=== PATIENT | female | born 1955 | race African-American/Black ===

== ENCOUNTER 2023-10-16 01:07 | Inpatient (IN) | payer MEDICARE, MEDICAID ==
[2023-10-16] VITALS (11 sets, daily range): BP systolic 129; BP diastolic 63; PULSE 79–91; RESP 14–22; TEMP 98.3; O2SAT 91–99
[~2023-10-16] VITALS: Ht 165.1 cm; Wt 77.3 kg
[~2023-10-16 01:07] MED LIST: ALBU18; IPRAAER5; LISI20TA56 PO; PRO125RS PO; VERA240T67 PO
[2023-10-16] MEDS: cefTRIAXone 1GM/50ML D5W 50 ML IV ONE (01:45)
[2023-10-16] MEDS: AZITHROMYCIN 250 MG TAB PO ONE (02:02)
[2023-10-16] MEDS: IPRATROPIUM BROM 0.5 MG/2.5ML INH SOL NEB ONE ×2 (02:14→06:31)
[2023-10-16] MEDS: ALBUTEROL SULF 2.5 MG/0.5ML(0.5%) NEB SOLN NEB ONE ×2 (02:14→06:31)
[2023-10-16] MEDS: methylPREDNISolone SOD SUCC 125 MG/2 ML VL IV ONE (02:45)
[2023-10-16 03:14] LABS: Basophils # (auto) 0 10 ^3/uL (0-0.2); Basophils % (auto) 0.4 % (0.0-2.0); Eosinophils # (auto) 0.5 10 ^3/uL (0-0.8); Eosinophils % (auto) 4.7 % (0.0-7.0); Hematocrit 39.9 % (36.0-46.0); Hemoglobin 12.5 g/dL (12.2-16.2); Lymphocytes # (auto) 0.7 10 ^3/uL (0.4-5.4); Lymphocytes % (auto) 7.1 % (10.0-50.0); Mean Corpuscular Hemoglobin 25.3 pg (28.0-32.0); Mean Corpuscular Hgb Conc. 31.4 g/dL (32.0-36.0); Mean Corpuscular Volume 80.5 fL (80.0-100.0); Monocytes # (auto) 0.2 10 ^3/uL (0-1.3); Neutrophils # (auto) 8.9 10 ^3/uL (1.6-8.6); Neutrophils % (auto) 85.8 % (37.0-80.0); Red Blood Cells 4.96 10^6/uL (4.0-5.20); Red Cell Distribution Width 21.1 % (11.8-14.3); White Blood Cell 10.3 10^3/uL (4.4-10.8)
[2023-10-16 03:43] LABS: Chloride 106 mmol/L (98-107); Sodium 139 mmol/L (136-145)
[2023-10-16 03:46] LABS: Anion Gap 8 (5-15); Carbon Dioxide 25 mmol/L (20-30)
[2023-10-16 03:47] LABS: Calcium 9.6 mg/dL (8.7-10.4)
[2023-10-16 03:51] LABS: Glucose 170 mg/dL (74-106)
[2023-10-16 04:02] LABS: Potassium 3.3 mmol/L (3.5-5.1)
[2023-10-16 04:03] LABS: BUN/Creatinine Ratio 6.8 (10.0-20.0); Blood Urea Nitrogen < 5 mg/dL (9-23)
[2023-10-16] MEDS ORDERED: DOCUSATE SOD 100 MG CAP PO PRN (06:45)
[2023-10-16] MEDS ORDERED: hydrALAZINE HCL 20 MG/ML VL IV PRN (06:45)
[2023-10-16] MEDS ORDERED: MORPHINE SULFATE INJ 2 MG/ml SYRG IV PRN (06:45)
[2023-10-16] MEDS ORDERED: ONDANSETRON HCL 4 MG/2 ML VIAL IV PRN (06:45)
[2023-10-16] MEDS ORDERED: ACETAMINOPHEN 325 MG TAB PO PRN (06:45)
[2023-10-16] MEDS ORDERED: NITROGLYCERIN 0.4 MG SL TAB SL PRN (06:45)
[2023-10-16] MEDS: SODIUM CHLORIDE 0.9% 1,000 ML IV SCH (07:09)
[2023-10-16] MEDS: POTASSIUM CHL 20 Meq TABLET PO ONE (07:10)
[2023-10-16 08:11] LABS: Alanine Aminotransferase 10 U/L (7-40); Albumin 4.4 g/dL (3.2-4.8); Alkaline Phosphatase 99 U/L (46-116); Aspartate Aminotransferase < 8 U/L (13-40); Bilirubin, Direct 0.1 mg/dL (<0.3); Bilirubin, Total 0.5 mg/dL (0.2-1.0); Total Protein 6.9 g/dL (5.7-8.2)
[2023-10-16] MEDS: ALBUTEROL SULF 2.5 MG/0.5ML(0.5%) NEB SOLN NEB PRN (10:47)
[2023-10-16] MEDS: HYDROcodone-ACET 10/325MG TAB PO PRN (13:54)
[2023-10-16] MEDS ORDERED: METO25TA93 PO (15:20)
[2023-10-16] MEDS ORDERED: ATOR-507 PO (15:20)
[2023-10-16] MEDS ORDERED: AMLO1TAB23 PO (15:20)
[2023-10-16] MEDS ORDERED: ASPI-378 OR (15:22)
[2023-10-16] MEDS ORDERED: PANT40TA2 PO (15:22)
[2023-10-16] MEDS: methylPREDNISolone SOD SUCC 40 MG/ML VL IV SCH (15:36)
[2023-10-16] MEDS: IPRATROPIUM BROM 0.5 MG/2.5ML INH SOL NEB PRN (18:22)
[2023-10-16] MEDS: ATORVASTATIN 20 MG TAB PO SCH (22:50)
[2023-10-17] VITALS (16 sets, daily range): BP systolic 123–142; BP diastolic 64–82; PULSE 71–89; RESP 16–24; TEMP 98–98.8; O2SAT 91–100
[2023-10-17] MEDS: IPRATROPIUM BROM 0.5 MG/2.5ML INH SOL NEB SCH (02:06)
[2023-10-17] MEDS: ALBUTEROL SULF 2.5 MG/0.5ML(0.5%) NEB SOLN NEB SCH (02:06)
[2023-10-17] MEDS: TEMAZEPAM 15 MG CAP PO ONE (03:13)
[2023-10-17 06:19] LABS: Basophils # (auto) 0.1 10 ^3/uL (0-0.2); Basophils % (auto) 0.4 % (0.0-2.0); Eosinophils # (auto) 0 10 ^3/uL (0-0.8); Hematocrit 38.9 % (36.0-46.0); Hemoglobin 12.3 g/dL (12.2-16.2); Lymphocytes # (auto) 0.7 10 ^3/uL (0.4-5.4); Lymphocytes % (auto) 4.8 % (10.0-50.0); Mean Corpuscular Hemoglobin 25.4 pg (28.0-32.0); Mean Corpuscular Hgb Conc. 31.7 g/dL (32.0-36.0); Mean Corpuscular Volume 80.3 fL (80.0-100.0); Monocytes # (auto) 0.3 10 ^3/uL (0-1.3); Monocytes % (auto) 2.4 % (0.0-12.0); Neutrophils # (auto) 12.8 10 ^3/uL (1.6-8.6); Neutrophils % (auto) 92.4 % (37.0-80.0); Red Blood Cells 4.85 10^6/uL (4.0-5.20); White Blood Cell 13.8 10^3/uL (4.4-10.8)
[2023-10-17 06:20] LABS: Red Cell Distribution Width 21.5 % (11.8-14.3)
[2023-10-17 06:29] LABS: Alanine Aminotransferase 10 U/L (7-40); Alkaline Phosphatase 95 U/L (46-116); Calcium 10.9 mg/dL (8.5-10.1); Carbon Dioxide 24 mmol/L (20-30); Chloride 104 mmol/L (98-107)
[2023-10-17 06:30] LABS: Albumin 4.5 g/dL (3.2-4.8); Anion Gap 10 (5-15); Aspartate Aminotransferase 11 U/L (13-40); BUN/Creatinine Ratio 13.9 (10.0-20.0); Bilirubin, Total 0.4 mg/dL (0.2-1.0); Blood Urea Nitrogen 16 mg/dL (9-23); Glucose 160 mg/dL (74-106); Potassium 3.9 mmol/L (3.5-5.1); Sodium 138 mmol/L (136-145)
[2023-10-17] MEDS: PANTOPRAZOLE 40 MG TAB PO SCH (09:50)
[2023-10-17] MEDS: amLODIPine BESYLATE 5 MG TAB PO SCH (09:54)
[2023-10-17] MEDS: METOPROLOL SUCCINATE XL 50 MG TAB PO SCH (09:55)
[2023-10-17] MEDS: ASPirin-EC 81 mg tab PO SCH (09:55)
[2023-10-17] MEDS: ZOLPIDEM TARTRATE 5 MG TAB PO PRN (22:23)
[2023-10-18] VITALS (13 sets, daily range): BP systolic 103–142; BP diastolic 58–65; PULSE 67–81; RESP 14–22; TEMP 97.5–98.4; O2SAT 93–100
[2023-10-18] MEDS ORDERED: ALBUAER3 IN (09:02)
[2023-10-18] MEDS ORDERED: ALBU0.084 NEB (09:02)
[2023-10-18] MEDS ORDERED: PRED20TA2 PO (09:02)
== END 2023-10-18 13:35 | disposition home or self-care (01) | DRG 189 ==
LOC: ER 01:07 → EDBD 01:07 → OVERFLOW 06:45 → TELE-E-ADS 10-17 10:58 → TELE-CENTR 10-17 18:33
PROVIDERS: ADMIT Nurse Practitioner Family; ATTEND Family Medicine
DX: J96.21 Acute and chronic respiratory failure with hypoxia (principal); J44.1 Chronic obstructive pulmonary disease with (acute) exacerbation; I10 Essential (primary) hypertension; E87.6 Hypokalemia; R73.9 Hyperglycemia, unspecified; Z79.899 Other long term (current) drug therapy
CPT/HCPCS: 36415; 71045; 80048; 80053; 80076; 83036; 83605; 83880; 84484; 85025; 93005; 94640; 96365; G0378

== ENCOUNTER 2023-12-15 21:10 | Inpatient (IN) | payer MEDICARE, MEDICAID ==
[~2023-12-15] VITALS: Ht 165.1 cm; Wt 86.2 kg
[~2023-12-15 21:10] MED LIST changes: +ALBU0.084 NEB; +ALBUAER3 IN; +AMLO1TAB23 PO; +ASPI-378 OR; +ATOR-507 PO; +METO25TA93 PO; +PANT40TA2 PO; +PRED20TA2 PO
[2023-12-15] MEDS: MORPHINE SULFATE 4 MG/ML SYR/VIAL IV ONE (23:00)
[2023-12-15 23:35] LABS: Basophils # (auto) 0.1 10 ^3/uL (0-0.2); Basophils % (auto) 1.3 % (0.0-2.0); Eosinophils # (auto) 0.9 10 ^3/uL (0-0.8); Eosinophils % (auto) 14.8 % (0.0-7.0); Hematocrit 36.8 % (36.0-46.0); Hemoglobin 11.9 g/dL (12.2-16.2); Lymphocytes # (auto) 1.8 10 ^3/uL (0.4-5.4); Lymphocytes % (auto) 31.8 % (10.0-50.0); Mean Corpuscular Hgb Conc. 32.3 g/dL (32.0-36.0); Mean Corpuscular Volume 83.5 fL (80.0-100.0); Monocytes # (auto) 0.5 10 ^3/uL (0-1.3); Monocytes % (auto) 9.4 % (0.0-12.0); Neutrophils # (auto) 2.5 10 ^3/uL (1.6-8.6); Neutrophils % (auto) 42.7 % (37.0-80.0); Nucleated Red Blood Cells % 0.1 %; Red Blood Cells 4.41 10^6/uL (4.0-5.20); Red Cell Distribution Width 16.4 % (11.8-14.3); White Blood Cell 5.8 10^3/uL (4.4-10.8)
[2023-12-15 23:52] LABS: Albumin 4.1 g/dL (3.2-4.8); Alkaline Phosphatase 97 U/L (46-116); Anion Gap 9 (5-15); Aspartate Aminotransferase < 8 U/L (13-40); BUN/Creatinine Ratio 18.7 (10.0-20.0); Blood Urea Nitrogen 17 mg/dL (9-23); Calcium 10.2 mg/dL (8.7-10.4); Carbon Dioxide 24 mmol/L (20-30); Chloride 110 mmol/L (98-107); Glucose 118 mg/dL (74-106); Lipase 34 U/L (12-53); Potassium 2.9 mmol/L (3.5-5.1); Sodium 143 mmol/L (136-145)
[2023-12-15 23:53] LABS: Bilirubin, Total 0.8 mg/dL (0.2-1.0); Total Protein 6.3 g/dL (5.7-8.2)
[2023-12-15] MEDS: ONDANSETRON HCL 4 MG/2 ML VIAL IV ONE (23:53)
[2023-12-15] MEDS: PANTOPRAZOLE 40 MG/10 ML VIAL INJ IV ONE (23:53)
[2023-12-15] MEDS: SODIUM CHLORIDE 0.9% 1,000 ML IV ONE (23:53)
[2023-12-15 23:58] LABS: Alanine Aminotransferase < 9 U/L (7-40)
[2023-12-16] VITALS (10 sets, daily range): BP systolic 120–138; BP diastolic 56–69; PULSE 85–94; RESP 15–20; TEMP 98.3–99.9; O2SAT 90–96
[2023-12-16] MEDS: POTASSIUM CHL 20MEQ/100ML 100 ML IV ONE (01:10)
[2023-12-16] MEDS: diphenhdrAMINE HCL 50 MG/1 ML VL IV ONE (01:10)
[2023-12-16] MEDS: HYDROmorphone HCL 2 MG/ML VL/or syr IV ONE ×2 (01:10→12:35)
[2023-12-16 03:40] LABS: Urine Bacteria None Seen /hpf (None Seen)
[2023-12-16 03:50] LABS: Urine Hyaline Cast MANY /lpf (0 - 2); Urine Mucus FEW (None Seen); Urine WBC 6 /hpf (0 - 5)
[2023-12-16 03:51] LABS: Urine Blood Normal /uL (Negative); Urine Clarity Turbid (Clear); Urine Color Yellow (Yellow); Urine Protein, UAD 1+ (Negative); Urine Specific Gravity 1.022 (1.001-1.035); Urine Urobilinogen Normal (Negative); Urine pH 5.5 (5.0-9.0)
[2023-12-16] MEDS ORDERED: MORPHINE SULFATE INJ 2 MG/ml SYRG IV PRN (10:15)
[2023-12-16] MEDS ORDERED: ONDANSETRON HCL 4 MG/2 ML VIAL IV PRN (10:15)
[2023-12-16] MEDS ORDERED: NITROGLYCERIN 0.4 MG SL TAB SL PRN (10:15)
[2023-12-16] MEDS: SODIUM CHLORIDE 0.9% 1,000 ML IV SCH (10:32)
[2023-12-16] MEDS: PANTOPRAZOLE 40mg/50ML NS AE 50 ML IV SCH (10:44)
[2023-12-16 10:47] LABS: Hematocrit 30.3 % (36.0-46.0); Hemoglobin 9.9 g/dL (12.2-16.2); Mean Corpuscular Hemoglobin 27.4 pg (28.0-32.0); Mean Corpuscular Hgb Conc. 32.8 g/dL (32.0-36.0); Mean Corpuscular Volume 83.5 fL (80.0-100.0); Red Blood Cells 3.63 10^6/uL (4.0-5.20); Red Cell Distribution Width 16.7 % (11.8-14.3); White Blood Cell 5.4 10^3/uL (4.4-10.8)
[2023-12-16 10:50] LABS: Basophils % (manual) 0 (0.0-2.0); Blast Cells 0; Metamyelocytes % 0; Myelocytes % 0; Promyelocytes % 0; Reactive Lymphocytes 0
[2023-12-16 10:52] LABS: Chloride 113 mmol/L (98-107); Potassium 3.6 mmol/L (3.5-5.1); Sodium 144 mmol/L (136-145)
[2023-12-16 10:53] LABS: Anion Gap 4 (5-15); Carbon Dioxide 27 mmol/L (20-30)
[2023-12-16 10:54] LABS: Calcium 9.1 mg/dL (8.5-10.1)
[2023-12-16 10:58] LABS: Glucose 106 mg/dL (74-106)
[2023-12-16 10:59] LABS: BUN/Creatinine Ratio 19.4 (10.0-20.0); Blood Urea Nitrogen 18 mg/dL (9-23); Magnesium 1.5 mg/dL (1.6-2.6)
[2023-12-16 11:05] LABS: Band Neutrophils % (manual) 1; Eosinophils % (manual) 18 (0-7); Lymphocytes % (manual) 23 (10.0-50.0); Monocytes % (manual) 8 (0-12)
[2023-12-16 11:06] LABS: Anisocytosis Slight; Platelet Estimate Adequate
[2023-12-16 13:51] LABS: INR 1.12 (0.9-1.15); Partial Thromboplastin Time 27.2 SEC (24.5-34.5); Prothrombin Time 11.8 sec (9.3-11.8)
[2023-12-16] MEDS ORDERED: SODIUM CHLORIDE LOCK 10 ML ONE (14:39)
[2023-12-16] MEDS: LIDOCAINE VISCOUS 2% 15ML UD ONE (15:02)
[2023-12-16] MEDS: MIDAZOLAM HCL 5 MG/ML-1ML VIAL ONE (15:06)
[2023-12-16] MEDS: fentaNYL CITRATE 100 MCG/2 ML VL ONE (15:06)
[2023-12-16] MEDS: diphenhdrAMINE HCL 50 MG/1 ML VL ONE (15:06)
[2023-12-16] MEDS: SUCRALFATE 1 GM/10 ML ORAL SUSP GT SCH (17:00)
[2023-12-16] MEDS: HYDROmorphone HCL 2 MG/ML VL/or syr IV PRN (20:50)
[2023-12-16] MEDS: PANTOPRAZOLE 40 MG/10 ML VIAL INJ IV SCH (21:50)
[2023-12-16] MEDS: ATORVASTATIN 20 MG TAB PO SCH (21:50)
[2023-12-17] VITALS (20 sets, daily range): BP systolic 108–166; BP diastolic 46–66; PULSE 61–89; RESP 16–22; TEMP 97.4–99.3; O2SAT 90–100
[2023-12-17] MEDS: ALBUTEROL SULF 2.5 MG/0.5ML(0.5%) NEB SOLN NEB PRN (02:46)
[2023-12-17 04:54] LABS: Hematocrit 30.4 % (36.0-46.0); Mean Corpuscular Hemoglobin 27.5 pg (28.0-32.0); Mean Corpuscular Hgb Conc. 32.8 g/dL (32.0-36.0); Mean Corpuscular Volume 83.7 fL (80.0-100.0); Red Blood Cells 3.63 10^6/uL (4.0-5.20); Red Cell Distribution Width 16.4 % (11.8-14.3); White Blood Cell 5.6 10^3/uL (4.4-10.8)
[2023-12-17 04:59] LABS: Band Neutrophils % (manual) 0; Basophils % (manual) 0 (0.0-2.0); Blast Cells 0; Metamyelocytes % 0; Myelocytes % 0; Promyelocytes % 0; Reactive Lymphocytes 0
[2023-12-17 05:24] LABS: Eosinophils % (manual) 22 (0-7); Lymphocytes % (manual) 35 (10.0-50.0); Monocytes % (manual) 4 (0-12)
[2023-12-17 05:25] LABS: Platelet Estimate Adequate
[2023-12-17 05:29] LABS: Alanine Aminotransferase 11 U/L (7-40); Albumin 3.6 g/dL (3.2-4.8); Alkaline Phosphatase 89 U/L (46-116); Anion Gap 6 (5-15); Aspartate Aminotransferase 11 U/L (13-40); BUN/Creatinine Ratio 10.4 (10.0-20.0); Calcium 9.5 mg/dL (8.7-10.4); Carbon Dioxide 24 mmol/L (20-30); Chloride 113 mmol/L (98-107); Glucose 105 mg/dL (74-106); Potassium 3.7 mmol/L (3.5-5.1); Sodium 143 mmol/L (136-145)
[2023-12-17 05:30] LABS: Bilirubin, Total 0.8 mg/dL (0.2-1.0); Total Protein 5.5 g/dL (5.7-8.2)
[2023-12-17 05:34] LABS: Blood Urea Nitrogen 7 mg/dL (9-23)
[2023-12-17] MEDS: VERAPAMIL HCL 120 mg ER tab PO SCH (09:49)
[2023-12-17] MEDS: METOPROLOL SUCCINATE XL 50 MG TAB PO SCH (09:50)
[2023-12-17] MEDS: LISINOPRIL 20 MG TAB PO SCH (09:50)
[2023-12-17] MEDS: SUCRALFATE 1 GM/10 ML ORAL SUSP PO SCH (12:02)
[2023-12-17] MEDS: ALBUTEROL SULF 2.5 MG/0.5ML(0.5%) NEB SOLN NEB SCH (13:06)
[2023-12-18] VITALS (24 sets, daily range): BP systolic 97–119; BP diastolic 46–74; PULSE 60–90; RESP 14–26; TEMP 97.8–98.8; O2SAT 90–99
[2023-12-18] MEDS: IPRATROPIUM BROM 0.5 MG/2.5ML INH SOL NEB SCH (13:44)
[2023-12-18] MEDS: methylPREDNISolone SOD SUCC 125 MG/2 ML VL IV SCH (15:43)
[2023-12-19] VITALS (21 sets, daily range): BP systolic 104–148; BP diastolic 49–76; PULSE 63–87; RESP 16–20; TEMP 97.8–99.2; O2SAT 91–100
[2023-12-19] MEDS: ACETAMINOPHEN 325 MG TAB PO PRN (15:43)
[2023-12-20] VITALS (13 sets, daily range): BP systolic 97–148; BP diastolic 58–67; PULSE 60–82; RESP 18–20; TEMP 98.1–98.3; O2SAT 92–99
[2023-12-20] MEDS ORDERED: PANT40T PO (12:47)
[2023-12-20] MEDS ORDERED: SUCR1TAB31 OR (12:47)
== END 2023-12-20 16:20 | disposition home or self-care (01) | DRG 377 ==
LOC: ER 21:10 → TELE 12-16 10:17 → TELE-WESTW 12-16 17:15
PROVIDERS: ADMIT Nurse Practitioner Family; ATTEND Family Medicine
PROC: 0DB68ZX Excision of Stomach, Via Natural or Artificial Opening Endoscopic, Diagnostic (ICD-10-PCS; 2023-12-16)
PROC: 0DB98ZX Excision of Duodenum, Via Natural or Artificial Opening Endoscopic, Diagnostic (ICD-10-PCS; principal; 2023-12-16 14:55)
DX: K25.4 Chronic or unspecified gastric ulcer with hemorrhage (principal); J96.21 Acute and chronic respiratory failure with hypoxia; D62 Acute posthemorrhagic anemia; J44.1 Chronic obstructive pulmonary disease with (acute) exacerbation; K44.9 Diaphragmatic hernia without obstruction or gangrene; E78.00 Pure hypercholesterolemia, unspecified; E87.6 Hypokalemia; I10 Essential (primary) hypertension; I25.10 Atherosclerotic heart disease of native coronary artery without angina pectoris; K31.3 Pylorospasm, not elsewhere classified; I25.2 Old myocardial infarction; Z88.5 Allergy status to narcotic agent; J47.9 Bronchiectasis, uncomplicated; Z79.82 Long term (current) use of aspirin
CPT/HCPCS: 36415; 36600; 43239; 74176; 80048; 80053; 81001; 82805; 83605; 83690; 83735; 83880; 84484; 85007; 85025; 85027; 85610; 85730; 86850; 86900; 86901; 87040; 93005; 94640; 96361; 96365; 96375; 96376; G0378; J2250; J2405; J2470; J3480

== ENCOUNTER 2024-03-17 12:26 | Emergency (ER) | payer MEDICARE, MEDICAID ==
[~2024-03-17] VITALS: Ht 170.2 cm; Wt 75.0 kg
[~2024-03-17 12:26] MED LIST changes: +PANT40T PO; +SUCR1TAB31 OR
[2024-03-17] MEDS: DexAMETHasone SOD PHOS 10MG/1ML VIAL INJ IM ONE (13:22)
[2024-03-17 13:28] VITALS: PULSE 79; RESP 22; O2SAT 93
[2024-03-17] MEDS: IPRATROPIUM BROM 0.5 MG/2.5ML INH SOL NEB ONE (13:35)
[2024-03-17] MEDS: ALBUTEROL SULF 2.5 MG/0.5ML(0.5%) NEB SOLN NEB ONE (13:35)
[2024-03-17 13:39] VITALS: BP 130/60; PULSE 75; RESP 20; O2SAT 96
[2024-03-17] MEDS ORDERED: PRED20TA2 PO (13:58)
== END 2024-03-17 14:15 | disposition home or self-care (01) ==
LOC: ER 12:26 → EDUNIT# 12:26 → EDBD 12:26 → ER 14:15
DX: J44.1 Chronic obstructive pulmonary disease with (acute) exacerbation (principal); I10 Essential (primary) hypertension
CPT/HCPCS: 93005; 94640; 96372; 99283; J1100